=== PATIENT | female | born 2000 | race African-American/Black ===

== ENCOUNTER 2019-02-02 19:59 | Emergency (ER) | payer SELFPAY ==
[2019-02-02 20:06] VITALS: BP 129/81; PULSE 98; TEMP 98.9; BMI 34.2
--- NOTE | 2019-02-02 21:33 | PDOC ---
History of Present Illness - General Chief Complaint: Respiratory Stated Complaint: COLD SYMPTOMS Time Seen by Provider: 02/02/19 21:22 History Source: Patient - History of Present Illness Initial Comments: 02/02/19 22:41 Chief complaint: Cold symptoms and a pimple Patient is a healthy 18-year-old female who is had a couple of days of cold symptoms, seems to be getting better. Patient has a small pimple on the left anterior chest which was bothering her at work and stated that she told him she could not lift anything. They sent her to the ER for further evaluation. Patient has no fever and otherwise feels well. GENERAL/CONSTITUTIONAL: No fever, weakness. dizziness HEAD, EYES, EARS, NOSE AND THROAT: No change in vision. No ear pain or discharge. No sore throat. + Cold symptoms CARDIOVASCULAR: No chest pain RESPIRATORY: No shortness of breath or cough GASTROINTESTINAL: No pain, nausea, vomiting, diarrhea or constipation GENITOURINARY: No dysuria MUSCULOSKELETAL: No neck or back pain SKIN: No rash, + pimple NEUROLOGIC: No headache, vertigo, loss of consciousness, or loss of sensation. GENERAL: The patient is awake, alert, and fully oriented, in no acute distress. HEAD: Normal with no signs of trauma. EYES: Pupils equal, round and reactive to light, sclera anicteric, conjunctiva clear. ENT: pharynx: no erythema, no exudate, uvula midline NECK: supple CHEST: clear, nontender, rr ABD: soft, nontender BACK: no tenderness or signs of injury EXTREMITIES: Normal range of motion, no edema. NEUROLOGICAL: Normal speech, normal gait. SKIN: Warm, Dry, small pustule on upper left anterior chest without signs of cellulitis. Past History - Past Medical History Allergies/Adverse Reactions: Allergies Allergy/AdvReac Type Severity Reaction Status Date / Time No Known Allergies Allergy Verified 02/02/19 20:06 COPD: No - Psycho Social/Smoking Cessation Hx Smoking History: Current some day smoker Information on smoking cessation initiated: No *Physical Exam - Vital Signs Last Vital Signs Temp Pulse Resp BP Pulse Ox 98.9 F 98 H 18 129/81 99 02/02/19 20:04 02/02/19 20:04 02/02/19 20:04 02/02/19 20:04 02/02/19 20:04 Medical Decision Making - Medical Decision Making 02/02/19 22:43 18-year-old female with cold symptoms, resolving who has small pustule/pimple to the left upper anterior chest without signs of cellulitis. Area cleaned and small needle I&D done with small amount of pus and blood removed, patient feels better. Patient does not need systemic antibiotics local bacitracin return if worse Discussed issues, findings, results, applicable medications and treatments and follow-up. All these were understood and all questions were answered Discharge - Discharge Information Problems reviewed: Yes Clinical Impression/Diagnosis: Pustule Upper respiratory infection Qualifiers: URI type: unspecified URI Qualified Code(s): J06.9 - Acute upper respiratory infection, unspecified Condition: Stable Disposition: HOME - Admission No - Follow up/Referral - Patient Discharge Instructions Patient Printed Discharge Instructions: DI for Viral Upper Respiratory Infection -- Adult Additional Instructions: Drink 2-3 L of water daily Take Tylenol 650 mg every 4 hours or Motrin 600 mg every 6 hours for fever and pain Return to the nearest ER if short of breath, unable to swallow or feeling sicker Followup with your doctor in one to 2 days For the pimple, keep clean with soap and water, apply bacitracin, return to the ER if he gets worse instead of better - Post Discharge Activity Work/Back to School Note: Back to Work
== END 2019-02-02 21:40 | disposition home or self-care (01) ==
LOC: JERFT 19:59
DX: L08.9 Local infection of the skin and subcutaneous tissue, unspecified (principal); J06.9 Acute upper respiratory infection, unspecified; Z72.0 Tobacco use
CPT/HCPCS: 99281-25

== ENCOUNTER 2021-03-30 23:33 | Emergency (ER) | payer OTHER ==
[2021-03-31 00:02] VITALS: BP 121/75; PULSE 88; TEMP 98; BMI 36.8
[2021-03-31] MEDS ORDERED: IBUPROFEN 600 MG TABLET (FP) PO ONE ×2 (00:42→00:43)
== END 2021-03-31 00:48 | disposition home or self-care (01) ==
LOC: JER 23:33
DX: H60.311 Diffuse otitis externa, right ear (principal)
CPT/HCPCS: 99283-25

== ENCOUNTER 2022-03-28 00:13 | Emergency (ER) | payer OTHER ==
[2022-03-28 00:29] VITALS: BMI 27.1
[2022-03-28] MEDS ORDERED: SODIUM CHLORIDE 0.9% 500 ML INFUS.BAG IV ONE (01:29)
[2022-03-28] MEDS ORDERED: ACETAMINOPHEN 1000 MG/100 ML BAG IVPB ONE (01:30)
[2022-03-28] MEDS ORDERED: ACETAMINOPHEN INJECTION 100 ML IVPB ONE (01:38)
[2022-03-28 02:05] LABS: BASO % 0.3 % (0-2.0); HEMATOCRIT 35.8 % (32.4-45.2); HEMOGLOBIN 12.3 GM/dL (10.7-15.3); LYMPH % 7.9 % (8-40); MCH 30.3 pg (25.7-33.7); MCHC 34.4 g/dl (32.0-36.0); MEAN CELL VOLUME 87.8 fl (80-96); MEAN PLT VOLUME 8.5 fl (7.5-11.1); MONO % 9.6 % (3.8-10.2); NEUT % 82.2 % (42.8-82.8); PLATELET COUNT 230 10^3/uL (134-434); RBC 4.08 M/mm3 (3.60-5.2); RDW 11.8 % (11.6-15.6); WHITE BLOOD COUNT 8.4 K/mm3 (4.0-10.0)
[2022-03-28 02:36] LABS: CALCIUM 8.3 mg/dL (8.5-10.1)
[2022-03-28 02:38] LABS: ALBUMIN 3.5 g/dl (3.4-5.0); BLOOD UREA NITROGEN 10.8 mg/dL (7-18)
[2022-03-28 02:39] LABS: CREATININE 0.9 mg/dL (0.55-1.3); PHOSPHOROUS 3.5 mg/dL (2.5-4.9)
[2022-03-28 02:40] LABS: BILIRUBIN,TOTAL 0.6 mg/dL (0.2-1)
[2022-03-28 02:41] LABS: TOT PROT 6.9 g/dl (6.4-8.2)
[2022-03-28 02:58] LABS: EPI CELLS 34 /uL (0-25.1); HYALINE CASTS 36 /uL (0-3.1); PH,URINE 5.5 (5.0-8.0); URINE APPEARANCE CLOUDY; URINE BACTERIA 366 /uL (0-1359); URINE BILIRUBIN NEGATIVE (NEGATIVE); URINE COLOR YELLOW; URINE GLUCOSE (UA) NEGATIVE (NEGATIVE); URINE KETONE 2+ (NEGATIVE); URINE LEUK ESTERASE 1+ (NEGATIVE); URINE NITRITE NEGATIVE (NEGATIVE); URINE PROTEIN 1+ (NEGATIVE); URINE RBC 78 /uL (0-23.9); URINE UROBILINOGEN 0.2 mg/dL (0.2-1.0); URINE WBC 286 /uL (0-25.8)
[2022-03-28 04:11] VITALS: BP 104/64; PULSE 77; RESP 18; TEMP 98.1
== END 2022-03-28 05:26 | disposition home or self-care (01) ==
LOC: JER 00:13
PROC: 3E033GC Introduction of Other Therapeutic Substance into Peripheral Vein, Percutaneous Approach (ICD-10-PCS; principal; 2022-03-28)
DX: B00.9 Herpesviral infection, unspecified (principal)
CPT/HCPCS: 0241U-QW; 36415; 80053; 81003; 83735; 84100; 84703; 85025; 86780; 87086; 87491; 87591; 87661; 93005; 93010; 99284-25